=== PATIENT | female | born 1935 | race Caucasian/White ===

== ENCOUNTER 2023-07-02 11:37 | Outpatient (CLI) | payer MEDICARE, BC | END 2023-07-02 23:59 | disposition home or self-care (01) | LOC: VAS 11:37 | PROVIDERS: ATTEND Dental Hygienist | DX: I70.203 Unspecified atherosclerosis of native arteries of extremities, bilateral legs (principal) | CPT/HCPCS: 93922; 93925 ==

== ENCOUNTER 2023-07-23 13:24 | Outpatient (CLI) | payer MEDICARE, BC ==
[2023-07-23 14:16] LABS: ALBUMIN 4.1 G/DL (3.4-5.0); ANION GAP 5 (8-16); BLOOD UREA NITROGEN 12 MG/DL (7-18); CALCIUM 9.7 MG/DL (8.5-10.1); CHLORIDE 104 MMOL/L (99-107); GLUCOSE 110 MG/DL (70-104); POTASSIUM 3.7 MMOL/L (3.5-5.1); SODIUM 141 MMOL/L (135-145); eGFR 68 ML/MIN
[2023-07-23] MEDS ORDERED: iohexol 350 MG/ML 50ML vial IV ONE (14:57)
[2023-07-23] MEDS ORDERED: iohexol 350MG/ML 100ml bottle IV ONE (14:57)
== END 2023-07-23 23:59 | disposition home or self-care (01) ==
LOC: RAD 13:24
PROVIDERS: ATTEND Surgery
DX: I73.9 Peripheral vascular disease, unspecified (principal); I77.1 Stricture of artery
CPT/HCPCS: 36415; 75635; 80048; J3490; Q9967